=== PATIENT | female | born 1970 | race African-American/Black ===

== ENCOUNTER 2017-04-06 15:54 | Emergency (ER) | payer OTHER ==
--- NOTE | ~2017-04-06 | CR72 ---
[facility]. [facility] A Service of [facility] & [facility] / [facility] RADIOLOGY TEXT RESULTS PATIENT: ALICIA WILLINGHAM LOCATION: SED : 66 UNIT #: [id number] AGE: [address]: Abhijit Banegas MD SEX: F ORDER DR: [id number] [address] [id number] MR#: [id number] Acc #: [id number] NAME: ALICIA WILLINGHAM : 1970 SEX: F STUDY DATE/TIME: 04/06/2017 17:45 UNIT: SED ROOM: STUDY DESCRIPTION: CR Chest Single View Portable Attending Physician: Abhijit Banegas M.D. Ordering Physician: Abhijit Banegas M.D. Primary Care Physician: [facility] [place] MEDICAL IMAGING REPORT This report is preliminary unless electronic signature is present. EXAM Portable chest, 04/06/2017 HISTORY 46-year-old female with weakness and dizziness for 3 days. COMPARISON Chest, 05/16/2016 FINDINGS Frontal chest demonstrates clear lungs. No pleural effusion or pneumothorax. Borderline heart size is stable. Mediastinum and pulmonary vasculature unremarkable. IMPRESSION No acute cardiopulmonary findings. Dictated by... Edgard Horn M.D. THIS IS AN ELECTRONICALLY VERIFIED REPORT Edgard Horn M.D. at 04/08/2017 10:46 AM Layo TD: 04/07/2017 18:09 JOB #: [id number] MEDICAL IMAGING REPORT Page 1 of 1
--- NOTE | ~2017-04-06 | EKG ---
PATIENT: ALICIA WILLINGHAM UNIT #: [id number] Ventricular Rate: 80 BPM Atrial Rate: 80 BPM P-R Interval: 172 ms QRS Duration: 100 ms Q-T Interval: 432 ms QTC Calculation(Bezet): 498 ms P [place]: 47 degrees Calculated R [place]: -25 degrees Calculated T [place]: -18 degrees Diagnosis Line: Normal sinus rhythm Diagnosis Line: Minimal voltage criteria for LVH, may be normal Diagnosis Line: variant Diagnosis Line: Nonspecific T wave abnormality Diagnosis Line: Prolonged QT Diagnosis Line: Abnormal ECG Diagnosis Line: When compared with ECG of 16-MAY-2016 22:19, Diagnosis Line: T wave inversion more evident in Inferior leads Diagnosis Line: Confirmed by ABIDA RAMÍREZ MD ([id number]) on Diagnosis Line: 04/08/2017 1:50:33 PM INTERPRETING MD: DESIREE EDWARDS
[~2017-04-06 15:54] MED LIST: ALDACTONE PO; AMOXICILLIN875 MG PO; APRESOLINE PO; ASPIRIN PO; ASPIRIN81 M2 PO; ATENOLOL PO; BACLOFEN10 MG PO; BACTROBAN22 GM; BENTYL10 MG PO; BUPROPION XL300 M1 PO; CARAFATE PO; CHLORTHALIDONE25 MG PO; CHLORTHALIDONE50 M1 PO; CITALOPRAM HBR40 MG PO; CLONIDINE PO; COREG CR40 M1 PO; COREG PO; COZAAR PO; DIOVAN PO; FERRO-TIME325 MG PO; FLEXERIL10 M1 PO; FLEXERIL10 MG PO; HYDRALAZINE HC100 MG PO; IRON325 ( 651 PO; KCL PO; LINZESS145 MCG PO; LIPITOR PO; LISINOPRIL PO; LOSARTAN POTASS50 MG PO; LOVASTATIN20 M1 PO; LOVASTATIN20 MG PO; MACROBID100 MG PO; METFORMIN HCL1000 M1 PO; METFORMIN HCL750 MG PO; MULTI VITAMIN1 EACH PO; POTASSIUM CL 225 ME1 PO; SULAR PO; TYLENOL #3 PO; VERAPAMIL ER240 MG PO; VERAPAMIL HCL360 MG PO; VICODIN 5/1 TAB 5/50 PO; VIT D PO; VITAMIN D 22000 UNIT PO; VITAMIN D PO; VOLTAREN50 MG PO; VOLTAREN75 MG PO; ZITHROMAX PO; ZOFRAN ODT4 MG PO; ZYLOPRIM PO; [UNRECOGNIZED DRUG - OTHER] PO
[2017-04-06] MEDS ORDERED: COZAAR PO (16:06)
[2017-04-06] MEDS ORDERED: METFORMIN PO (16:06)
[2017-04-06 17:31] LABS: BASOPHIL% 0.7 % (0-2.5); EOSINOPHIL# 0.1 X10e3 (0-0.7); EOSINOPHIL% 1.7 % (0.0-7.0); HEMATOCRIT 40.5 % (35.0-45.0); LYMPHOCYTE# 1.5 X10e3 (1.0-3.5); LYMPHOCYTE% 30.2 % (17.0-45.0); MEAN CELL VOLUME 86.7 FL (83-96); MEAN CORPUSCULAR HEMOGLOBIN 27.9 PG (28-34); MEAN CORPUSCULAR HGB CONC 32.2 g/dL (30-36); MEAN PLATELET VOLUME 8.6 FL (6.5-11.5); MONOCYTE# 0.6 X10e3 (0-1.0); MONOCYTE% 12.5 % (3.0-12.0); NEUTROPHIL# 2.8 X10e3 (1.5-7.1); NEUTROPHIL% 54.9 % (40-75); PLATELET COUNT 289 X10e3 (140-420); RED BLOOD COUNT 4.67 X10e (3.90-5.30); RED CELL DISTRIBUTION WIDTH 14.5 % (11.0-15.5); WHITE BLOOD COUNT 5.1 X10e3 (4.0-10.5)
[2017-04-06 17:32] LABS: DIFF IND NO
[2017-04-06 17:49] LABS: URINE SOURCE CLEAN CATCH
[2017-04-06 17:49] LABS: POC - CKMB 1.4 ng/mL (0.0-7.9); POC - TROPONIN <0.05 ng/mL (<=0.05)
[2017-04-06 17:52] LABS: URINE APPEARANCE CLEAR; URINE BILIRUBIN NEG (NEG); URINE BLOOD NEG (NEG); URINE COLOR YELLOW; URINE GLUCOSE NEG (NORM); URINE KETONE TRACE (NEG); URINE LEUKOCYTE ESTERASE NEG (NEG); URINE NITRATE NEG (NEG); URINE PH 5.5 (5-8); URINE PROTEIN TRACE (NEG); URINE SPECIFIC GRAVITY 1.025 (1.003-1.035); URINE UROBILINOGEN 0.2 MG/DL (NORM)
[2017-04-06 17:55] LABS: ALKALINE PHOSPHATASE 56 U/L (32-92); ALT (SGPT) 16 U/L (10-40); AST (SGOT) 16 U/L (10-42); BILIRUBIN,TOTAL 0.6 mg/dL (0.2-2.0); BLOOD UREA NITROGEN 15 mg/dL (9-23); BUN/CREATININE RATIO 10.71; CALCIUM SERUM 8.7 mg/dL (8.4-10.2); CARBON DIOXIDE 27 mmol/L (22-31); CHLORIDE 109 mmol/L (100-111); CREATININE SERUM 1.4 mg/dL (0.6-1.4); GLOM FILT RATE Estimated 51.4 mL/min (>60); GLUCOSE FASTING 89 mg/dL (70-110); POTASSIUM 3.5 mmol/L (3.5-5.1); PROTEIN TOTAL SERUM 7.5 g/dL (6.0-8.3); SODIUM 138 mmol/L (135-145)
[2017-04-06 17:56] LABS: MICRO INDICATED? YES
[2017-04-06 17:56] LABS: BILIRUBIN, DIRECT <0.1 mg/dL (0.0-0.2); BILIRUBIN,INDIRECT 0.5 mg/dL (0.0-0.9)
[2017-04-06 17:59] LABS: CULTURE INDICATED? YES; URINE BACTERIA 1+ (NEG); URINE SQUAMOUS EPITHELIAL CELL MODERATE /[HPF]
[2017-04-06 18:00] LABS: URINE CRYSTALS CALCIUM OXALATE /[HPF]; URINE MUCUS PRESENT; URINE TRANSITIONAL EPI CELLS OCCAS /[HPF]
== END 2017-04-06 19:24 | disposition home or self-care (01) ==
LOC: SED 15:54
PROVIDERS: Emergency Medicine
DX: R53.1 Weakness (principal); E11.9 Type 2 diabetes mellitus without complications; Z88.8 Allergy status to other drugs, medicaments and biological substances; Z91.040 Latex allergy status; Z91.013 Allergy to seafood; Z79.82 Long term (current) use of aspirin; Z79.899 Other long term (current) drug therapy; Z79.84 Long term (current) use of oral hypoglycemic drugs
CPT/HCPCS: 36415; 71010; 80048; 80076; 81003; 82553; 83874; 84484; 85025; 87086; 93005; 99285